=== PATIENT | male | born 1990 | race Asian ===

== ENCOUNTER → 2016-11-02 | Outpatient (CLI) | payer OTHER ==
--- NOTE | 2016-11-29 10:20 | PULMONARY FUNCTION TEST ---
Spirometry is within the limits of normal. Repeat study done following bronchodilators showed mild but not significant improvement in function. Flow volume loops were normal.
== END | disposition home or self-care (01) ==
LOC: C.RC 12:50
PROVIDERS: ATTEND Obstetrics & Gynecology
DX: R06.89 Other abnormalities of breathing (principal)